=== PATIENT | female | born 1970 | race Asian ===

== ENCOUNTER → 2017-07-12 | Outpatient (CLI) | payer BC | END | disposition home or self-care (01) | LOC: HKI 10:38 | DX: Q65.89 Other specified congenital deformities of hip (principal); M25.552 Pain in left hip | CPT/HCPCS: 73502 ==

== ENCOUNTER → 2017-08-01 | Outpatient (CLI) | payer BC | END | disposition home or self-care (01) | LOC: HKI 11:01 | DX: Q65.02 Congenital dislocation of left hip, unilateral (principal) | CPT/HCPCS: 77073 ==

== ENCOUNTER → 2018-04-16 | Outpatient (CLI) | payer BC | END | disposition home or self-care (01) | LOC: HKI 15:36 | DX: M25.552 Pain in left hip (principal); Q65.89 Other specified congenital deformities of hip | CPT/HCPCS: 73502; 73564-50 ==

== ENCOUNTER 2018-11-13 08:56 | Emergency (ER) | payer BC ==
[2018-11-13] MEDS: TETRACAINE 0.5% 4 ML OPH LEFT EYE (09:28)
[2018-11-13] MEDS: FLUORESCEIN STRIP LEFT EYE (09:28)
== END 2018-11-13 10:08 | disposition home or self-care (01) ==
LOC: FTE 08:56
DX: S05.92XA Unspecified injury of left eye and orbit, initial encounter (principal); X58.XXXA Exposure to other specified factors, initial encounter; Y92.9 Unspecified place or not applicable
CPT/HCPCS: 99283

== ENCOUNTER 2019-03-25 08:43 | Emergency (ER) | payer BC | END 2019-03-25 09:28 | disposition home or self-care (01) | LOC: FTE 09:28 | DX: J02.9 Acute pharyngitis, unspecified (principal) | CPT/HCPCS: 99282 ==